=== PATIENT | female | born 1985 ===

== ENCOUNTER → 2017-02-24 | Outpatient (CLI) | payer OTHER ==
[~2017-02-24] MED LIST: SYNTHROID50 MCG PO
== END | disposition home or self-care (01) ==
LOC: PPH VACUNA 12:39
DX: Z23 Encounter for immunization (principal)

== ENCOUNTER → 2017-05-11 | Outpatient (CLI) | payer OTHER | END | disposition home or self-care (01) | LOC: PPH VACUNA 14:42 | DX: Z23 Encounter for immunization (principal) ==